=== PATIENT | female | born 1950 ===

== ENCOUNTER → 2018-02-18 | Outpatient (CLI) | payer MEDICARE ==
--- NOTE | 2018-02-18 17:13 | RADIOLOGY IMAGING REPORT ---
FACILITY: [facility] [place] PATIENT NAME: Cari Roa : 1950 MR: [id number] V: [id number] EXAM DATE: ORDERING PHYSICIAN: MARILYN DALE TECHNOLOGIST: Location: [facility] Patient: Cari Roa : 1950 Visit/Account:[id number] Date of Sevice: 02/18/2018 CAROTID HISTORY: Right-sided bruit COMPARISON: None. FINDINGS: Grayscale, duplex and color Doppler interrogation of the extracranial carotid and vertebral arteries was performed bilateral. On the right, peak systolic velocities within the common and internal carotid arteries are 88 and 463 cm/sec respectively. At the carotid bulb and extending into the proximal internal carotid artery is a large fibrofatty plaque which causes severe luminal narrowing with increased velocities, spectral broadening and aliasing.. Antegrade flow within the common, internal and external carotid arteries a s well as vertebral artery. ICA/CCA ratio 5.3. On the left, peak systolic velocities within the common and internal carotid arteries are 111 and 226 cm/sec respectively. There is a moderate-sized fibrofatty plaque present at the carotid bulb which causes luminal narrowing and increased spectral broadening. Antegrade flow within the common, international first officer al and external carotid arteries as well as vertebral artery. ICA/CCA ratio 2.0. IMPRESSION: On the right, there is a greater than 70% stenosis but likely approaching greater than 90% On the left, there is a moderate stenosis measuring between 50-69%, but likely between 60 and 69% Recommend CTA of the neck for further characterization. Results were discussed with MARILYN DALE at 02/18/2018 5:09 PM. Velocity criteria are extrapolated from diameter data as defined by the Society of Radiologists in [place] Consensus Conference Radiology 2003; 229;340-346 Report Dictated By: Jaime Queen at 02/18/2018 4:44 PM Report E-Signed By: Jaime Queen at 02/18/2018 5:09 PM WSN:[email or web address]
== END ==
LOC: US 01:33
PROVIDERS: ATTEND Physician Assistant
DX: I65.23 Occlusion and stenosis of bilateral carotid arteries (principal)
CPT/HCPCS: 93880

== ENCOUNTER → 2018-02-23 | Outpatient (CLI) | payer MEDICARE ==
[~2018-02-23] MED LIST: IOPAMIDOL 76% 75 ML INFUS BTL 75 ML ONE
--- NOTE | 2018-02-23 14:53 | RADIOLOGY IMAGING REPORT ---
[place] [facility] [place] Cari Roa : 1950 MR: [id number] V: [id number] EXAM DATE: ORDERING PHYSICIAN: [facility] TECHNOLOGIST: Location: [facility] Patient: Cari Roa : 1950 Visit/Account:[id number] Date of Sevice: 02/23/2018 CT ANGIOGRAM HEAD W W/O CONTRA Provided history: High-grade right carotid stenosis by ultrasound. Moderate left carotid stenosis by ultrasound. Additional pertinent history: none TECHNIQUE: Overlapping thin sections were obtained during a bolus of IV contrast from the aortic arch through th e [place]. Reconstruction of the source data set includes multiplanar 2D in the sagittal and coronal planes, and 3D coronal thin slab MIP series. Preparer images have been stored on PACS. Stenosis calculations are performed using the NASCET criteria (the diameter of the stenotic segment d ivided by the diameter of a normal distal segment of internal carotid artery, where larson are paralle l, then subtracted from 1) Contrast: 75 ml Isovue 370 One of the following dose optimization techniques was utilized in the performance of this exam: Autom ated exposure control; adjustment of the mA and/or kV according to the patient's size; or use of an i terative reconstruction technique. Specific details can be referenced in the facility's radiology C T exam operational policy. COMPARISON STUDIES: Ultrasound 02/18/18 FINDINGS: Angiographic findings: Aortic arch and great vessels: Negative. Right CCA / ICA: Extensive low-attenuation a mildly calcified plaque involves the common carotid bi furcation preferentially involving the lower carotid bulb resulting in a 90% focal stenosis of the ve ssel. Above this level, the ascending cervical segment is patent without additional focal stenosis. Petrous segment is normal. Siphon reveals nonstenotic calcification.. Left CCA / ICA: Noncalcified plaque involves the common carotid bifurcation preferentially involvin g the carotid bulb. Maximal measured stenosis 48 %. The rest of the ascending cervical segment is widely patent. Vessel is quite tortuous in the upper n alexia. Petrous segment normal. Siphon reveals minor nonstenotic calcified plaque. Vertebro-basilar: Negative. [place]: The right A1 segment is a very small almost atretic vessel. Left A1 segment is w idely patent and supplies most of the flow for both anterior circulations. Neither posterior communi cating artery is visualized either absent or very small.. Other: none significant Additional non-angiographic findings: none significant IMPRESSION: 1. 90% focal stenosis lower right carotid bulb, correlating with ultrasound findings. No additional significant right carotid disease. 2. Moderate stenosis left internal carotid measured at 48% in severity. No additional significant l eft-sided carotid disease. 3. Negative assessment of the vertebrals and basilar. 4. Threadlike right A1 segment with a widely patent left A1 segment such that the left internal gregorio tid essentially feeds both anterior cerebral circulations. Report Dictated By: Brad Palm MD at 02/23/2018 2:31 PM Report E-Signed By: Brad Palm MD at 02/23/2018 2:49 PM WSN:[id number]
--- NOTE | 2018-02-23 16:35 | RADIOLOGY IMAGING REPORT ---
FACILITY: [facility] PATIENT NAME: Cari Roa : 1950 MR: [id number] V: [id number] EXAM DATE: ORDERING PHYSICIAN: [facility] TECHNOLOGIST: Location: [facility] Patient: Cari Roa : 1950 Visit/Account:[id number] Date of Sevice: 02/23/2018 CT ANGIOGRAM HEAD W W/O CONTRA Provided history: High-grade right carotid stenosis by ultrasound. Moderate left carotid stenosis by ultrasound. Additional pertinent history: none TECHNIQUE: Overlapping thin sections were obtained during a bolus of IV contrast from the aortic arch through th e [place]. Reconstruction of the source data set includes multiplanar 2D in the sagittal and coronal planes, and 3D coronal thin slab MIP series. Certified [employer] Aide images have been stored on PACS. Stenosis calculations are performed using the NASCET criteria (the diameter of the stenotic segment d ivided by the diameter of a normal distal segment of internal carotid artery, where larson are paralle l, then subtracted from 1) Contrast: 75 ml Isovue 370 One of the following dose optimization techniques was utilized in the performance of this exam: Autom ated exposure control; adjustment of the mA and/or kV according to the patient's size; or use of an i terative reconstruction technique. Specific details can be referenced in the facility's radiology C T exam operational policy. COMPARISON STUDIES: Ultrasound 02/18/18 FINDINGS: Angiographic findings: Aortic arch and great vessels: Negative. Right CCA / ICA: Extensive low-attenuation a mildly calcified plaque involves the common carotid bi furcation preferentially involving the lower carotid bulb resulting in a 90% focal stenosis of the ve ssel. Above this level, the ascending cervical segment is patent without additional focal stenosis. Petrous segment is normal. Siphon reveals nonstenotic calcification.. Left CCA / ICA: Noncalcified plaque involves the common carotid bifurcation preferentially involvin g the carotid bulb. Maximal measured stenosis 48 %. The rest of the ascending cervical segment is widely patent. Vessel is quite tortuous in the upper n alexia. Petrous segment normal. Siphon reveals minor nonstenotic calcified plaque. Vertebro-basilar: Negative. [place]: The right A1 segment is a very small almost atretic vessel. Left A1 segment is w idely patent and supplies most of the flow for both anterior circulations. Neither posterior communi cating artery is visualized either absent or very small.. Other: none significant Additional non-angiographic findings: none significant IMPRESSION: 1. 90% focal stenosis lower right carotid bulb, correlating with ultrasound findings. No additional significant right carotid disease. 2. Moderate stenosis left internal carotid measured at 48% in severity. No additional significant l eft-sided carotid disease. 3. Negative assessment of the vertebrals and basilar. 4. Threadlike right A1 segment with a widely patent left A1 segment such that the left internal gregorio tid essentially feeds both anterior cerebral circulations. Report Dictated By: Brad Palm MD at 02/23/2018 2:31 PM Report E-Signed By: Brad Palm MD at 02/23/2018 2:49 PM WSN:[id number]
== END ==
LOC: CT 07:06
DX: I65.23 Occlusion and stenosis of bilateral carotid arteries (principal)
CPT/HCPCS: 36415; 70496; 70498; 82565; Q9967

== ENCOUNTER → 2018-08-04 | Outpatient (CLI) | payer MEDICARE ==
--- NOTE | 2018-08-04 12:15 | RADIOLOGY IMAGING REPORT ---
FACILITY: [facility] PATIENT NAME: Cari Roa : 1950 MR: [id number] V: [id number] EXAM DATE: ORDERING PHYSICIAN: CASANDRA GONZALEZ [place]CHN[place] [facility] [place]ari [place] : 1950 Visit/Account:[id number] Date of Sevice: 08/04/2018 Carotid artery Doppler duplex ultrasound scan. HISTORY: Bilateral carotid artery stenosis. COMPARISON: 02/18/2018. A color flow Doppler duplex ultrasound scan with spectral analysis was performed on the carotid and v ertebral arteries bilaterally. Measurement of carotid stenosis is based on velocity parameters that correlate the residual internal carotid diameter with [place] Symptomatic Carotid Endarterecto my Trial (NASCET)- based stenosis levels. Right carotid peak systolic velocities are as follows: Superior right ICA - 53 cm/sec. Mid right ICA - 93 cm/sec. Proximal right ICA - 602 cm/sec. Right carotid bulb - 86 cm/sec. Superior right CCA - 74 cm/sec. Mid right CCA- 91 cm/sec. Inferior right CCA- 189 cm/sec. Proximal right ECA- 148 cm/sec. Mid right vertebral- 48 cm/sec. Right ICA/CCA ratio- 3.2 ( normal < 1.5 ). Antegrade right vertebral artery flow- YES. Left carotid peak systolic velocities are as follows: Superior left ICA - 113 cm/sec. Mid left ICA- 113 cm/sec. Proximal left ICA- 332 cm/sec. Left carotid bulb- 119 cm/sec. Superior left CCA- 99 cm/sec. Mid left CCA- 120 cm/sec. Inferior left CCA- 112 cm/sec. Proximal left ECA- 108 cm/sec. Mid left vertebral- 58 cm/sec. Left ICA/CCA ratio- 2.8 ( normal < 1.5). Antegrade left vertebral artery flow- YES. Partially calcified plaques are present in the carotid bulbs and proximal internal and external carot id arteries bilaterally. Bilateral internal carotid artery velocities have increased compared to pre vious. IMPRESSION: Greater than 90% stenosis of the right carotid bulb and right proximal internal carotid artery. 70-90 % stenosis of the left carotid bulb and proximal left internal carotid artery. Report Dictated By: Kem Marin MD at 08/04/2018 12:03 PM Report E-Signed By: Kem Marin MD at 08/04/2018 12:10 PM WSN:[email or web address]
== END ==
LOC: US 01:25
PROVIDERS: ATTEND Surgery Vascular Surgery
DX: I65.23 Occlusion and stenosis of bilateral carotid arteries (principal)
CPT/HCPCS: 93880

== ENCOUNTER → 2018-09-03 | Outpatient (CLI) | payer MEDICARE | LOC: US 03:30 | PROVIDERS: ATTEND Surgery Vascular Surgery | DX: I65.23 Occlusion and stenosis of bilateral carotid arteries (principal); I35.1 Nonrheumatic aortic (valve) insufficiency | CPT/HCPCS: 93306 ==